=== PATIENT | male | born 1980 | race Caucasian/White ===

== ENCOUNTER 2018-05-27 22:52 | Emergency (ER) | payer OTHER ==
[~2018-05-27] VITALS: Ht 167.6 cm; Wt 81.6 kg
[~2018-05-27 22:52] MED LIST: FENOFIBRATE160 MG
[2018-05-28] MEDS ORDERED: NAPROXEN SODIU550 MG PO (01:17)
== END 2018-05-28 02:26 | disposition home or self-care (01) ==
LOC: ER 22:52
DX: M94.0 Chondrocostal junction syndrome [Tietze] (principal)

== ENCOUNTER 2025-01-09 06:51 | Emergency (ER) | payer OTHER ==
[~2025-01-09] VITALS: Ht 167.6 cm; Wt 74.8 kg
[~2025-01-09 06:51] MED LIST changes: +NAPROXEN SODIU550 MG PO
[2025-01-09] MEDS ORDERED: ZOLOFT100 MG PO (07:06)
[2025-01-09] MEDS ORDERED: LACTOBACILLUS ACIDOPHILUS 1 CAP CAP PO ONE ×2 (07:30→07:34)
[2025-01-09] MEDS ORDERED: FAMOTIDINE/PF 20 MG/2 ML VIAL IV ONE (07:30)
[2025-01-09] MEDS ORDERED: 0.9 % SODIUM CHLORIDE 1,000 ML IV SCH (07:30)
[2025-01-09] MEDS ORDERED: KETOROLAC TROMETHAMINE 30 MG VIAL IU ONE (07:30)
[2025-01-09] MEDS ORDERED: KETOROLAC TROMETHAMINE 30 MG VIAL ONE (07:33)
[2025-01-09] MEDS ORDERED: FAMOTIDINE/PF 20 MG/2 ML VIAL ONE (07:34)
[2025-01-09 08:10] LABS: BASO % 0.5 % (0.1-1.2); EOS # 0.08 (0.04-0.54); EOS % 0.6 % (0.7-7.0); LYMPH # 1.29 (1.18-3.74); LYMPH % 8.9 % (19.3-53.1); MEAN PLATELET VOLUME 9.20 fl (9.4-12.4); MONO # 0.62 (0.24-0.82); MONO % 4.3 % (4.7-12.5); NEUT # 12.39 (1.56-6.13); NEUT % 85.3 % (34.0-71.1); RED CELL DISTRIBUTION WIDTH 12.4 % (11.6-14.4)
[2025-01-09] MEDS ORDERED: BARIUM SULFATE 450 ML ORAL.SUSP PO ONE (08:28)
[2025-01-09 08:34] LABS: ERYTHROCYTE SEDIMENTATION RATE 9 mm/hr (0-15)
[2025-01-09 08:41] LABS: ALT/SGPT 29.0 U/L (12-78); AST/SGOT 20.0 U/L (15-37); BILIRUBIN TOTAL 0.35 mg/dL (0.3-1.2); BUN CREA RATIO 17.0 (7.0-25.0); CREATININE SERUM 1.1 mg/dL (0.70-1.30); GFR 72.06; GLOBULINA 4.3 G/DL (2.4-3.5); GLUCOSE FASTING 109.0 mg/dL (65-100); OSMOLALITY SERUM 284.0 MOSM/KG (275-295)
[2025-01-09 10:15] LABS: URINE APPEARANCE Clear; URINE BILIRRUBIN Negative (NEGATIVE); URINE BLOOD Negative; URINE COLOR Yellow; URINE GLUCOSE Negative (NEGATIVE); URINE KETONE Negative (NEGATIVE); URINE LEUKOCYTE Negative; URINE NITRATE Negative; URINE PROTEIN Negative (NEGATIVE); URINE UROBILINOGEN 0.2 E.U./dl
[2025-01-09 10:17] LABS: URINE BACTERIA 5.9 uL (0.0-1933); URINE EPITHELIAL CELLS 1.8 uL (0.0-38.8); URINE RBC 8.3 uL (0.0-20.8); URINE WBC 4.4 uL (0.0-23.2)
[2025-01-09 10:21] LABS: URINE CAST 0.43 uL (0.0-1.40)
[2025-01-09] MEDS ORDERED: PEPCID AC20 MG PO (12:28)
[2025-01-09] MEDS ORDERED: INTESTINEX680 M1 PO (12:28)
== END 2025-01-09 12:55 | disposition home or self-care (01) ==
LOC: ER 06:51
PROVIDERS: Student in an Organized Health Care Education/Training Program
DX: K52.89 Other specified noninfective gastroenteritis and colitis (principal); R10.9 Unspecified abdominal pain; Z91.013 Allergy to seafood
CPT/HCPCS: 36415; 74177; Q9965

== ENCOUNTER 2025-03-24 12:17 | Day surgery (SDC) | payer OTHER ==
[2025-03-16 13:58] VITALS: BP 111/59
[~2025-03-24 12:17] MED LIST changes: +INTESTINEX680 M1 PO; +PEPCID AC20 MG PO; +ZOLOFT100 MG PO
[2025-03-24] MEDS ORDERED: CEFAZOLIN SODIUM 1,000 MG VIAL ONE (12:44)
[2025-03-24] MEDS ORDERED: SUGAMMADEX SODIUM 200 MG/2 ML VIAL IV ONE (13:53)
[2025-03-24] MEDS ORDERED: KETOROLAC TROMETHAMINE 30 MG VIAL ONE (13:54)
[2025-03-24] MEDS ORDERED: BUPIVACAINE HCL/MPF 0.5% 30ML VIAL ONE (13:54)
[2025-03-24] MEDS ORDERED: LIDOCAINE HCL 1%/EPINEPHRINE 20ML VIAL IJ ONE (13:54)
== END 2025-03-24 17:05 | disposition home or self-care (01) ==
LOC: CIR.AMB 12:17
PROVIDERS: ATTEND Orthopaedic Surgery
DX: M75.41 Impingement syndrome of right shoulder (principal); M75.121 Complete rotator cuff tear or rupture of right shoulder, not specified as traumatic; M24.111 Other articular cartilage disorders, right shoulder